=== PATIENT | male | born 1970 | race Asian ===

== ENCOUNTER 2021-01-02 15:50 | Emergency (ER) | payer OTHER ==
[~2021-01-02] VITALS: Ht 162.6 cm; Wt 78.0 kg
[~2021-01-02 15:50] MED LIST: KEFLEX500 MG PO; NOHOMEMEDICATIONS; NORCO 5-325 TA1 EACH PO
[2021-01-02 17:01] LABS: ABSOLUTE NEUTROPHILS 2.9 thou/uL (1.4-8.2); BASOPHILS 0.3 % (0.0-2.0); EOSINOPHILS 3.5 % (0.0-3.0); HEMATOCRIT 45.1 % (42.0-52.0); HEMOGLOBIN 15.3 gm/dL (14.0-18.0); LYMPHOCYTES 29.3 % (24.0-44.0); MCH 31.2 pg (26.0-34.0); MCV 91.7 fL (80.0-100.0); MONOCYTES 7.8 % (1.0-8.0); PLATELET COUNT 191 thou/uL (150-400); POLYS 59.1 % (36.0-66.0); RBC 4.92 mil/uL (4.50-6.00); RDW 13.2 % (10.5-14.5)
[2021-01-02 17:06] LABS: CREATININE 0.8 mg/dL (0.7-1.3); POTASSIUM 4.1 mmol/L (3.5-5.1)
[2021-01-02] MEDS ORDERED: ANUSOL-HC25 MG RECTAL (17:44)
[2021-01-02] MEDS ORDERED: NORCO5 PO (17:44)
[2021-01-02 18:31] VITALS: BP 127/72
== END 2021-01-02 18:39 | disposition home or self-care (01) ==
LOC: ER 15:50
PROVIDERS: Emergency Medicine
DX: K62.89 Other specified diseases of anus and rectum (principal)

== ENCOUNTER 2021-01-04 07:23 | Emergency (ER) | payer OTHER ==
[~2021-01-04] VITALS: Ht 162.6 cm; Wt 77.1 kg
[~2021-01-04 07:23] MED LIST changes: +ANUSOL-HC25 MG RECTAL; +NORCO5 PO
[2021-01-04 07:52] LABS: BASOPHILS 0.4 % (0.0-2.0); EOSINOPHILS 3.9 % (0.0-3.0); HEMATOCRIT 44.6 % (42.0-52.0); HEMOGLOBIN 15.3 gm/dL (14.0-18.0); LYMPHOCYTES 26.6 % (24.0-44.0); MCH 31.4 pg (26.0-34.0); MCHC 34.4 g/dL (28.0-37.0); MCV 91.5 fL (80.0-100.0); MONOCYTES 9.7 % (1.0-8.0); PLATELET COUNT 201 thou/uL (150-400); POLYS 59.4 % (36.0-66.0); RBC 4.88 mil/uL (4.50-6.00); RDW 13.1 % (10.5-14.5)
[2021-01-04 08:10] LABS: URINE BILIRUBIN NEGATIVE (Negative); URINE BLOOD NEGATIVE (Negative); URINE CLARITY CLEAR; URINE COLOR YELLOW; URINE GLUCOSE-RANDOM* NEGATIVE (Negative); URINE KETONES TRACE (Negative); URINE LEUKOCYTES-REFLEX NEGATIVE (Negative); URINE NITRITE-REFLEX NEGATIVE (Negative); URINE PROTEIN (DIPSTICK) NEGATIVE (Negative); URINE UROBILINOGEN 0.2 E.U./dl (0.2-1.0)
[2021-01-04 08:16] LABS: CALCIUM 9.1 mg/dL (8.5-10.1); CREATININE 0.8 mg/dL (0.7-1.3)
[2021-01-04 08:22] LABS: ALBUMIN 4.1 g/dL (3.4-5.0); TOTAL BILIRUBIN 0.5 mg/dL (0.2-1.0); TOTAL PROTEIN 7.4 g/dL (6.4-8.2)
[2021-01-04] MEDS ORDERED: OXYCODONE HCL10 MG PO (12:12)
[2021-01-04] MEDS ORDERED: PERCOCET 10-321 EAC1 PO ×2 (12:21→12:34)
[2021-01-04 12:51] VITALS: BP 115/78
== END 2021-01-04 12:55 | disposition home or self-care (01) ==
LOC: ER 07:23
PROVIDERS: Emergency Medicine
DX: K62.89 Other specified diseases of anus and rectum (principal); Z79.891 Long term (current) use of opiate analgesic; Z79.899 Other long term (current) drug therapy

== ENCOUNTER 2021-01-10 11:20 | Inpatient (IN) | payer OTHER ==
[~2021-01-10] VITALS: Ht 162.6 cm; Wt 75.3 kg
[~2021-01-10 11:20] MED LIST changes: +OXYCODONE HCL10 MG PO; +PERCOCET 10-321 EAC1 PO
[2021-01-10 11:31] VITALS: BP 144/79
[2021-01-10 13:42] LABS: URINE BLOOD NEGATIVE (Negative); URINE CLARITY CLEAR; URINE COLOR YELLOW; URINE GLUCOSE-RANDOM* NEGATIVE (Negative); URINE KETONES 3+ (Negative); URINE LEUKOCYTES-REFLEX NEGATIVE (Negative); URINE NITRITE-REFLEX NEGATIVE (Negative); URINE PROTEIN (DIPSTICK) NEGATIVE (Negative); URINE SPECIFIC GRAVITY >= 1.030 (1.005-1.035)
[2021-01-10 13:51] LABS: CALCIUM 9.2 mg/dL (8.5-10.1); CREATININE 0.9 mg/dL (0.7-1.3); POTASSIUM 4.3 mmol/L (3.5-5.1)
[2021-01-10 13:53] LABS: ABSOLUTE NEUTROPHILS 5.6 thou/uL (1.4-8.2); BASOPHILS 0.3 % (0.0-2.0); EOSINOPHILS 0.9 % (0.0-3.0); HEMATOCRIT 46.2 % (42.0-52.0); HEMOGLOBIN 15.4 gm/dL (14.0-18.0); LYMPHOCYTES 13.4 % (24.0-44.0); MCH 31.2 pg (26.0-34.0); MCHC 33.3 g/dL (28.0-37.0); MCV 93.9 fL (80.0-100.0); MONOCYTES 5.6 % (1.0-8.0); PLATELET COUNT 214 thou/uL (150-400); POLYS 79.8 % (36.0-66.0); RBC 4.92 mil/uL (4.50-6.00); RDW 13.2 % (10.5-14.5); WBC 7.1 thou/uL (4.0-11.0)
[2021-01-10 13:57] LABS: ALBUMIN 4.2 g/dL (3.4-5.0); TOTAL BILIRUBIN 0.7 mg/dL (0.2-1.0); TOTAL PROTEIN 7.9 g/dL (6.4-8.2)
[2021-01-10 13:59] LABS: ICTOTEST (BILI CONFIRMATORY) Negative (Negative); URINE BILIRUBIN NEGATIVE (Negative)
[2021-01-10 14:00] LABS: URINE REDUCING SUBSTANCE NEGATIVE
[2021-01-10 16:19] VITALS: BP 122/73
[2021-01-10 16:20] VITALS: BP 113/63
[2021-01-10 19:23] VITALS: BP 125/80
--- NOTE | 2021-01-10 19:34 | NUR ---
[age] YEAR OLD MALE ADMITTED TO WEST ROOM 455. PT WAS BROUGHT INTO THE ER DUE TO HAVING RECTAL PAIN FOR THE PAST WEEK. PT ALERT AND ORIENTED TIMES FOUR. VSS. PT TOLERATES CLEAR LIQUID DIET. WILL BE NPO AFTER MIDNIGHT FOR GI PROCEDURE TOMORROW. PT AT BEDSIDE DURING ADMISSION ASSESSMENT. WILL CONTINUE TO MONITOR.
[2021-01-10 20:09] VITALS: BP 154/52
--- NOTE | 2021-01-11 03:05 | NUR ---
PT CARE ASSUMED WITH PT IN BED.PT IS A/O X4.PT IS ON UP AD MAC.PT C/O RECTUM PAIN AND PAIN MANAGED WITH TRAMADOL AND MORPHINE.PT HAD BOWEL PREP AND NPO FROM MIDNIGHT FOR COLONOSCOPY.WILL CONTINUE TO MONITOR PER POC
[2021-01-11 04:04] VITALS: BP 132/75
[2021-01-11 08:11] LABS: ABSOLUTE NEUTROPHILS 4.7 thou/uL (1.4-8.2); BASOPHILS 0.4 % (0.0-2.0); EOSINOPHILS 0.6 % (0.0-3.0); HEMATOCRIT 43.4 % (42.0-52.0); HEMOGLOBIN 14.7 gm/dL (14.0-18.0); LYMPHOCYTES 20.8 % (24.0-44.0); MCH 31.6 pg (26.0-34.0); MCV 92.8 fL (80.0-100.0); MONOCYTES 5.3 % (1.0-8.0); PLATELET COUNT 214 thou/uL (150-400); POLYS 72.9 % (36.0-66.0); RBC 4.67 mil/uL (4.50-6.00); RDW 13.3 % (10.5-14.5); WBC 6.5 thou/uL (4.0-11.0)
--- NOTE | 2021-01-11 08:17 | HC ---
[facility] [place] [address] [place] [address] CONSULTATION Name: NAV NÚÑEZ Room #: 456-P ADM IN M.R.#: [id number] Admission: 01/10/21 Attend Phys: Virginie Blanco MD Discharge: Date of : 72 Report #: [id number] THIS REPORT FOR: cc: FAM - No family physician/PCP FAM - No family physician/PCP Nick Hardwick MD ~ cc: Virginie Blanco MD DATE OF SERVICE: 01/10/2021 HISTORY OF PRESENT ILLNESS: The patient is a 50-year-old male with complaints of anorectal pain. This has become progressively worse. He has also noted recent bright red blood per rectum. No previous history of colonoscopy. He initially was evaluated in the Emergency Room on 01/04 and then again today. He also underwent an evaluation to [facility] and reportedly is scheduled for colonoscopy on Saturday. He also was given an ointment and/or suppository without much benefit. CT scan of the abdomen and pelvis on 01/02 showed some diffuse fatty infiltration of the liver, otherwise negative. On the however with IV contrast, multifocal areas of relative luminal narrowing and wall thickening within the rectosigmoid colon, which were nonspecific was noted, multifocal malignancy or chronic stricture and is not excluded, recommend colonoscopy. The patient denies fevers or chills. His white count is normal. There is no other significant medical history. Currently, denies any nausea, vomiting, heartburn, dysphagia. No chest pain or shortness of breath. He reports that the blood in the stool recently has been bright red and small amount in general. He denies any recent constipation or diarrhea in general. PAST MEDICAL HISTORY: Unremarkable. ALLERGIES: No known drug allergies. REVIEW OF SYSTEMS: As per HPI. SOCIAL HISTORY: Denies any tobacco use. He reports occasional alcohol use. FAMILY HISTORY: Negative for colon cancer or inflammatory bowel disease. MEDICATIONS AT HOME: None other than recent suppositories and anal ointment. PHYSICAL EXAMINATION: VITAL SIGNS: Temperature is 97.5, pulse 82, blood pressure is 148/75, respiratory rate is 20. GENERAL: He is alert and oriented x3, in no acute distress. HEENT: Sclerae nonicteric. Oropharynx clear. NECK: Supple, without lymphadenopathy. CARDIOVASCULAR: Regular rate and rhythm. [facility] [address] [place] [address] CONSULTATION Name: NAV NÚÑEZ Room #: [address] [place] [address] IN M.R.#: [id number] Admission: 01/10/21 Attend Phys: Virginie Blanco MD Discharge: Date of : 72 Report #: [id number] CHEST: Clear to auscultation bilaterally. ABDOMEN: Soft, nontender, nondistended. Normoactive bowel sounds. EXTREMITIES: No cyanosis, clubbing or edema. RECTAL EXAM: I did not perform a digital rectal exam as the patient was very tender in this area; however, just the perianal region was normal, no obvious abscess or swelling or erythema was noted. It was very tender just touching the edge of his anal canal. LABORATORY DATA: Sodium 140, potassium 4.3, chloride 103, bicarbonate 27, BUN is 19, creatinine 0.9, AST 26, lipase 96. Total bilirubin 0.7, alkaline phosphatase 76, ALT is 72, total protein 7.9, albumin 4.2. WBC 7.1, hemoglobin 15.4, platelet count is 214. COVID is negative. UA is essentially negative. 3+ ketones, 2+ urobilinogen. ASSESSMENT: Anorectal pain. Etiology is unclear at this point. CT showing possible inflammatory changes of the rectum and the rectosigmoid. This may represent a colitis such as ulcerative colitis. He has been having bright red blood per rectum. No obvious perianal abscess was noted. PLAN: To admit the patient and prep for colonoscopy tomorrow for further evaluation and make further recommendations at that time. In the meantime, the patient can using Analpram p.r.n. Thank you for allowing me to participate in his care. <ELECTRONICALLY SIGNED> By: Nick Hardwick MD 01/11/21 0817 [id number] Nick Hardwick MD /nt
[2021-01-11 08:27] LABS: CALCIUM 9.2 mg/dL (8.5-10.1); CREATININE 0.8 mg/dL (0.7-1.3); MAGNESIUM 2.1 mg/dL (1.8-2.4); POTASSIUM 4.1 mmol/L (3.5-5.1)
[2021-01-11 08:30] VITALS: BP 123/74
--- NOTE | 2021-01-11 10:12 | NUR ---
Nutrition: pt screen with nutrition risk d/t reported wt loss and decreased appetite. Pt wt down from 172 lb a week ago. Pt admit with 1 month of constipation and increasing rectal pain in past couple of weeks. Pt tolerated clear liquid dinner with 95% intake. Pt currently NPO for GI procedure. Albumin WNL. Meds reviewed. Assess at mild nutrition risk; rec advance diet as medically appropriate. F/u Saturday.
[2021-01-11] MEDS ORDERED: HYDROCORT-PRAMO30 G1 RECTAL (12:32)
[2021-01-11] MEDS ORDERED: MIRALAX17 GM PO (12:32)
[2021-01-11] MEDS ORDERED: COLACE100 MG PO (12:32)
[2021-01-11] MEDS ORDERED: ACETAMINOPHEN325 M1 PO (12:32)
[2021-01-11 14:23] VITALS: BP 123/74
[2021-01-11] MEDS ORDERED: TRAMADOL 50 MG50 MG PO (14:40)
--- NOTE | 2021-01-11 15:24 | NUR ---
PT ADMITTED RELATED TO RECTAL BANDAR, GI BLEED. CM REVIEWED CHART AND SPOKE WITH CARE TEAM. CM MET WITH PT AT BEDSIDE THIS DAY. PT APPEARED TO BE A&O X4. CM ROLE INTRODUCED. PT INDICATED HE LIVES IN A HOUSE WITH HIS WITH 10 STEPS TO ENTER AND NO STEPS INSIDE. 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 PT INDICATED NO DME OR HH HX. PT INDICATED HE IS PATIENT PAY. PT PROVIDED [facility] PACKET AND LIST OF PCP'S HERE AT [facility] PT EXPRESSED INTEREST. PT HAD COLONOSCOPY THIS DAY. CARE TEAM INDICATED THAT PT IS MEDICALLY STABLE TO DC HOME THIS DAY. PT TO DC HOME TO SELF CARE. PT INDICATED HE CAN PAY TO FILL HIS MEDS UPON DC. NO OTHER CM INTERVENTION INDICATED. CASE CLOSED.
--- NOTE | 2021-01-11 17:43 | NUR ---
Assumed pt care at 7am.Pt in bed waiting for colonoscopy. Assessment completed vss. Pt c/o rectal pain rated 9/10. Morphine ivp given with relief. Updates given to manufacturing engineering intern prior to pt leaving for colonoscopy at 1030 and returned to floor at 1300.Dr Blanco rounded on pt and dc order noted. Pt wanted to eat dinner prior to dc home.Dc summary compile and pt dc home with at 1735 in stable condition.
--- NOTE | 2021-01-12 13:46 | P ---
[facility] [place] [address] [place] [address] PROCEDURE REPORT Name: NAV NÚÑEZ Room #: 456-P [facility] IN M.R.#: [id number] Admission: 01/10/21 Attend Phys: Virginie Blanco MD Discharge: 01/11/21 Date of : 72 Report #: [id number] THIS REPORT FOR: cc: FAM - No family physician/PCP FAM - No family physician/PCP Nick Hardwick MD ~ cc: Alexandra Bautista APRN DATE OF SERVICE: 01/11/2021 PROCEDURE PERFORMED: Colonoscopy with biopsies. HISTORY OF PRESENT ILLNESS: The patient is a 50-year-old male who was seen in the Emergency Room yesterday with significant anorectal pain. CT with possible inflammation in the rectum and the rectosigmoid colon. No obvious perirectal abscess on digital exam yesterday. The patient has never had a colonoscopy. He also reports bright red blood per rectum at times. DESCRIPTION OF PROCEDURE: The risks and benefits of the procedure were explained to the patient, those risks including but not limited to bleeding, perforation and the risk of sedation. He understood these risks and gave informed consent. Sedation was given using propofol per anesthesia. Next, a digital rectal exam was initially performed, which showed anal fissure, otherwise normal. Next, using a standard Olympus colonoscope, the scope was placed in the patient's anus and advanced under direct vision to the cecum. The overall prep was excellent. The cecum and ileocecal valve were normal in appearance. Terminal ileum was intubated and normal in appearance. Ascending, transverse, descending and sigmoid colon were all normal. In the rectum, there was a 3-mm sessile polyp. This was removed with cold forceps, otherwise normal. On retroflexion, 2 small internal hemorrhoids were noted. Close examination of the anal canal showed a large fairly deep anal fissure. There was no active bleeding. The scope was then withdrawn and the procedure terminated. The patient tolerated the procedure well. IMPRESSION: 1. Large anal fissure, source of recent anal pain and bleeding. 2. Small rectal polyp. 3. Small internal hemorrhoids. RECOMMENDATIONS: 1. Recommend Analpram t.i.d. for the next several weeks. If there is no improvement, consider nifedipine ointment with lidocaine. If still no improvement, may need to consider colorectal surgery evaluation with possible surgery. 2. Await biopsy results. 3. If polyp is adenomatous polyp, repeat in 5 years. If hyperplastic, repeat [address] [address] PROCEDURE REPORT Name: NAV NÚÑEZ Room #: 456-P [facility] IN .R.#: [id number] Admission: 01/10/21 Attend Phys: Virginie Blanco MD Discharge: 01/11/21 Date of : 72 Report #: [id number] in 10 years. Thank you for allowing me to participate in his care. <ELECTRONICALLY SIGNED> By: Nick Hardwick MD 01/12/21 1346 [id number] Nick Hardwick MD /nt
== END 2021-01-11 17:49 | disposition home or self-care (01) | DRG 379 ==
LOC: ER 11:20 → EROBS 13:57 → 4W 16:26
PROVIDERS: Nurse Practitioner; Physician Assistant; ADMIT Hospitalist; ATTEND Hospitalist
PROC: 0DBP8ZZ Excision of Rectum, Via Natural or Artificial Opening Endoscopic (ICD-10-PCS; principal; 2021-01-11)
DX: K92.2 Gastrointestinal hemorrhage, unspecified (principal); K64.8 Other hemorrhoids; K60.2 Anal fissure, unspecified; Z20.822 Contact with and (suspected) exposure to COVID-19; K62.1 Rectal polyp; Z79.899 Other long term (current) drug therapy; Z28.21 Immunization not carried out because of patient refusal
CPT/HCPCS: 10045; 62110; 62900; 70005